=== PATIENT | male | born 1985 | race Caucasian/White ===

== ENCOUNTER 2017-03-04 11:34 | Emergency (ER) | payer SELFPAY ==
[~2017-03-04] VITALS: Ht 182.9 cm; Wt 72.0 kg
[2017-03-04 11:36] VITALS: TEMP 36.9; Ht 182.9 cm; Wt 72.0 kg
[2017-03-04] MEDS ORDERED: CEFTRIAXONE SOD INJ 1 GM ADDVIAL IV STA (11:51)
[2017-03-04 12:05] LABS: BASO % 0.1 %; BASO ABS # 0.01 K/uL (0-0.2); COMPLETE YES; EOS % 1.7 %; HEMATOCRIT 45.6 % (42-52); IG% 0.3 %; LYMPH % 14.2 %; MEAN CELL VOLUME 94.2 fL (80-100); MEAN CORPUSCULAR HEMOGLOBIN 32.2 pg (25-34); MEAN CORPUSCULAR HGB CONC 34.2 g/dl (32-36); MEAN PLATELET VOLUME 10.6 fL (7.4-10.4); MONO % 10.8 %; NEUT % 72.9 %; PLATELET COUNT 198 K/uL (130-400); RED BLOOD COUNT 4.84 M/uL (4.7-6.1); WHITE BLOOD COUNT 7.05 K/uL (4.8-10.8)
[2017-03-04 12:23] LABS: BUN/CREATININE RATIO 9.6 (10-20); CREATININE 0.97 mg/dl (0.60-1.40); POTASSIUM 4.2 mmol/L (3.5-5.1)
--- NOTE | 2017-03-04 12:34 | EMERGENCY ROOM VISIT NOTE ---
History First contact with patient: 11:43 Chief Complaint: HAND PAIN/INJURY Stated Complaint: HAND WAS LANCED NEEDS LUMP REMOVED/PAINFUL History of Present Illness The patient is a 31 year old male who presents to the Emergency Room with complaints of left hand swelling. The patient states that 12 years ago he put a nail through his left hand. He was never evaluated for it. He states that they're always has been a small lump. He states that a few months ago someone stepped on it and it got much larger. 2 weeks ago he saw urgent care and they opened it and drained it. He was on Bactrim. He states that he has worsening swelling, pain and redness. His significant other states he had a fever of 102 F last night. The patient rates his discomfort an 8/10. He denies any other injury or symptom. He states that his tetanus is up-to-date. Review of Systems A 10 system review of systems was completed with positives and pertinent negatives listed in the HPI. Past Medical/Surgical History Patient denies Social History Smoking Status: Light Tobacco Smoker Housing Status: lives with family Current/Historical Medications Scheduled Cephalexin Monohydrate (Keflex), 500 MG PO QID Sulfa/Trimethoprim (Bactrim Ds 800MG/160MG), 1 TAB PO BID Allergies Coded Allergies: Amoxicillin (Unverified Allergy, Unknown, unknown , 03/04/17) Penicillins (Unverified Allergy, Unknown, unknown, 03/04/17) Physical Exam Vital Signs Date Time Temp Pulse Resp B/P (MAP) Pulse Ox O2 Delivery O2 Flow Rate FiO2 03/04/17 13:30 77 18 126/79 99 Room Air 03/04/17 11:36 36.9 84 17 134/90 98 Room Air Physical Exam VITALS: Vitals are noted on the nurse's note and reviewed by myself. Vital signs stable. GENERAL: This a 31-year-old male in no acute distress, nondiaphoretic, well- developed well-nourished. SKIN: There is a very localized area of swelling to the palm of the hand in the area of the mid third metacarpal. There is some fluctuance. There is no surrounding erythema or surroundings living. There is no lymphangitic streaking. There is no tenting of the skin. Capillary reflex less than 2 seconds. HEAD: Normocephalic atraumatic. EARS: The external ears are normal in appearance. EYES: Pupils equal round and reactive to light and accommodation. Conjunctivae without injection, sclerae without icterus. Extraocular movements intact. NOSE: Patent, turbinates without inflammation or discharge. MOUTH: Mucous membranes moist. Tonsils are not enlarged. Pharynx without erythema or exudate. Uvula midline. Airway patent. Tongue does not deviate. NECK: Supple without nuchal rigidity. No JVD. HEART: Regular rate and rhythm without murmurs gallops or rubs. LUNGS: Clear to auscultation bilaterally without wheezes, rales or rhonchi. No retractions or accessory muscle use. MUSCULOSKELETAL: Left palm skin changes as above. There is pain with active and passive range of motion of the fingers, particularly the left third finger. There is mild tenderness to palpation in the area of swelling. The remaining extremities are otherwise unremarkable. Normal gait. Strength 5/5 throughout. NEURO: Patient was alert and oriented to person place and time. No focal neurological deficits. Medical Decision & Procedures ER Provider Diagnostic Interpretation: LEFT HAND 3 VIEWS CLINICAL HISTORY: Left hand pain and swelling. Abscess. Foreign body assessment. FINDINGS: 3 views of left hand are obtained. No prior studies are available for comparison at the time of dictation. The skeletal structures are well mineralized. No fracture is seen. The joint spaces of the hand are well-maintained. Significant soft tissue edema seen along the palmar aspect of the hand. No radiodense foreign body is identified. No subcutaneous gas is clearly seen. IMPRESSION: 1. No acute bony abnormality is identified in the left hand. 2. Soft tissue edema is seen along the palmar aspect of the hand. No radiodense foreign body is identified. Laboratory Results 03/04/17 11:55 Red Blood Count 4.84, Mean Corpuscular Volume 94.2, Mean Corpuscular Hemoglobin 32.2, Mean Corpuscular Hemoglobin Concent 34.2, Mean Platelet Volume 10.6, Neutrophils (%) (Auto) 72.9, Lymphocytes (%) (Auto) 14.2, Monocytes (%) (Auto) 10.8, Eosinophils (%) (Auto) 1.7, Basophils (%) (Auto) 0.1, Neutrophils # (Auto ) 5.14, Lymphocytes # (Auto) 1.00, Monocytes # (Auto) 0.76, Eosinophils # (Auto ) 0.12, Basophils # (Auto) 0.01 03/04/17 11:55 Test 03/04/17 11:55 White Blood Count 7.05 K/uL (4.8-10.8) Red Blood Count 4.84 M/uL (4.7-6.1) Hemoglobin 15.6 g/dL (14.0-18.0) Hematocrit 45.6 % (42-52) Mean Corpuscular Volume 94.2 fL (80-100) Mean Corpuscular Hemoglobin 32.2 pg (25-34) Mean Corpuscular Hemoglobin Concent 34.2 g/dl (32-36) Platelet Count 198 K/uL (130-400) Mean Platelet Volume 10.6 fL (7.4-10.4) Neutrophils (%) (Auto) 72.9 % Lymphocytes (%) (Auto) 14.2 % Monocytes (%) (Auto) 10.8 % Eosinophils (%) (Auto) 1.7 % Basophils (%) (Auto) 0.1 % Neutrophils # (Auto) 5.14 K/uL (1.4-6.5) Lymphocytes # (Auto) 1.00 K/uL (1.2-3.4) Monocytes # (Auto) 0.76 K/uL (0.11-0.59) Eosinophils # (Auto) 0.12 K/uL (0-0.5) Basophils # (Auto) 0.01 K/uL (0-0.2) RDW Standard Deviation 44.2 fL (36.4-46.3) RDW Coefficient of Variation 12.7 % (11.5-14.5) Immature Granulocyte % (Auto) 0.3 % Immature Granulocyte # (Auto) 0.02 K/uL (0.00-0.02) Anion Gap 7.0 mmol/L (3-11) Est Creatinine Clear Calc Drug Dose 110.3 ml/min Estimated GFR () 118.4 Estimated GFR (Non- 102.2 BUN/Creatinine Ratio 9.6 (10-20) Calcium Level 9.0 mg/dl (8.5-10.1) Medications Administered Medications (Trade) Dose Ordered Sig/Jose Route Start Time Stop Time Status Last Admin Dose Admin Ceftriaxone Sodium (Rocephin Inj) 1 gm NOW STAT IV 03/04/17 11:51 03/04/17 11:53 DC 03/04/17 12:06 1 GM ED Course The patient was seen and examined. Previous visits were reviewed. The patient does not have a fever or leukocytosis. He does not have any significant electrolyte abnormality. Glucose is slightly elevated at 145. He was advised of this finding. He is encouraged to have his glucose rechecked with his family doctor. X-ray was obtained as above. Radiology read the film as negative for foreign body or bony abnormality. However, I do question that there is possibly a small bone avulsion on the palmar aspect just beneath the area of swelling. The patient was given 1 g IV Rocephin. I was hesitant to open the area of swelling given that it is on the palm of the hand, has been there at least 12 years. I am not certain if there could be tendon involvement, foreign body or if this represents a cyst more than an abscess. I also asked Dr. Landers to evaluate the patient and he was in agreement. I discussed the case with Dr. Palmer. He stated that he would see the patient in the office on Monday. The patient was advised of this. The patient will be placed on Bactrim and Keflex. He should return to the ER with any worsening symptoms. The patient was also seen and examined by who agrees with the assessment and treatment plan. Medical Decision The differential diagnosis includes tenosynovitis, abscess, cellulitis, foreign body, bony abnormality, among others Impression Primary Impression: Hand abscess Departure Information Dispostion Home / Self-Care Condition GOOD Prescriptions Cephalexin Monohydrate (Keflex) 500 Mg Cap 500 MG PO QID for 10 Days, #40 CAP Prov: Denise Rouse PA-C 03/04/17 Sulfa/Trimethoprim (Bactrim Ds 800MG/160MG) Tab 1 TAB PO BID for 10 Days, #20 TAB Prov: Denise Rouse PA-C 03/04/17 Referrals No Doctor, Assigned (PCP) Ke Palmer D.O. Forms HOME CARE DOCUMENTATION FORM, IMPORTANT VISIT INFORMATION, Work Instructions Return To Work: 3 days Patient Instructions My [facility] [place] Additional Instructions Antibiotics as prescribed, until finished Contact Orthopedics first thing Monday morning for an appointment on Monday with Dr. Barter Return with any worsening redness, swelling, fevers
--- NOTE | 2017-03-04 12:50 | EMERGENCY ROOM VISIT NOTE ---
ED Visit Note First contact with patient: 11:43 31-year-old male with a lump on his left hand. The patient was fully evaluated by Elsa Rouse PA-C. Please see her note. I also independently evaluated the patient. The patient has increasing swelling but does not appear to be acutely infected. X-ray does reveals slight haziness just lateral to the third MP joint. The patient will be referred to orthopedics.
--- NOTE | 2017-03-04 12:52 | DIAGNOSTIC IMAGING REPORT ---
LEFT HAND 3 VIEWS CLINICAL HISTORY: Left hand pain and swelling. Abscess. Foreign body assessment. FINDINGS: 3 views of left hand are obtained. No prior studies are available for comparison at the time of dictation. The skeletal structures are well mineralized. No fracture is seen. The joint spaces of the hand are well-maintained. Significant soft tissue edema seen along the palmar aspect of the hand. No radiodense foreign body is identified. No subcutaneous gas is clearly seen. IMPRESSION: 1. No acute bony abnormality is identified in the left hand. 2. Soft tissue edema is seen along the palmar aspect of the hand. No radiodense foreign body is identified. Electronically signed by: Felix Orellana M.D. 03/04/2017 12:50 PM Dictated Date/Time: 03/04/2017 12:49 PM
[2017-03-04 13:30] VITALS: BP 126/79; PULSE 77; O2SAT 99
[2017-03-04] MEDS ORDERED: CEPH500C PO (13:38)
[2017-03-04] MEDS ORDERED: SULF800T23 PO (13:38)
== END 2017-03-04 13:47 | disposition home or self-care (01) ==
LOC: C.EDB 11:36
DX: L02.512 Cutaneous abscess of left hand (principal); M79.642 Pain in left hand; F17.210 Nicotine dependence, cigarettes, uncomplicated